=== PATIENT | female | born 1970 | race Caucasian/White ===

== ENCOUNTER 2024-08-16 10:15 | Emergency (ER) | payer OTHER, SELFPAY ==
[2024-08-16 10:26] VITALS: BP 115/89
[2024-08-16 10:30] VITALS: BMI 21.8
--- NOTE | 2024-08-16 12:36 | ED.GENMED ---
History of Present Illness
General
Chief Complaint: Extremity Pain (non-traumatic)
Source: patient
Time Seen by Provider: 08/16/24 11:04
History of Present Illness
History of Present Illness:
53-year-old female with no significant past medical history presenting the emergency department with atraumatic left posterior knee and calf pain that is been gradually worsening over the last few weeks, the last few days has gotten difficulty
ambulating and trouble sleeping due to the pain. Has been taking some Motrin ibuprofen with some initial relief but states now not helping. Denies any trauma, no focal weakness. No history of similar.
Past History
Past History
ED Past Medical History: None
ED Past Surgical History: None
Social History
Tobacco: Non-smoker
Alcohol: None
Drug: None
Personal:
Living: with family
Employment: Employed
Review of Systems
Review of Systems
All Other Systems: ROS reviewed and negative except as documented in HPI and ROS
Phy Exam
Physical Exam
Physical Exam:
GENERAL: Alert , in no apparent distress
EYE: conjunctiva clear
Head: Normocephalic atraumatic
NECK: Supple,
ENT: mmm.
LUNGS: no acute respiratory distress
NEUROLOGICAL: Alert and oriented
SKIN: Warm and dry, skin intact.
MUSCULOSKELETAL: Left lower extremity: No obvious deformity, erythema, edema, ecchymosis, abrasions or lacerations. Patient allows for full range of motion of the extremity but does have discomfort at the knee when doing so. There is an easily
palpable pedal and tibial pulse. Cap refill less than 2 seconds and sensation is grossly intact to light touch.
PSYCH: Normal and appropriate interaction.
Scores
Heart Failure Risk
Heart Failure Risk Score: Not Applicable
Heart Score for Chest Pain Patients
STEMI patient?: Not applicable
Withdrawal Assessment of Alcohol
Withdrawal Assessment Completed?: Not applicable
Course
Orders/Labs/Results
Orders:
Orders
08/16/24 10:25
Periph Venous Lwr Ext Left US [US Periph Venous LOWER Ext LT] Urgent
Comment:
Reason For Exam: calf pain
08/16/24 12:37
Knee Immobilizer Left-Treatmen ONCE
Vital Signs
Initial and Last Documented VS:
Initial Vital Signs
Temp Pulse Resp BP Pulse Ox
97.8 F 78 16 115/89 98
08/16/24 10:26 08/16/24 10:26 08/16/24 10:26 08/16/24 10:26 08/16/24 10:26
Last Documented Vital Signs
Temp Pulse Resp BP Pulse Ox
97.8 F 78 16 115/89 98
08/16/24 10:26 08/16/24 10:26 08/16/24 10:26 08/16/24 10:26 08/16/24 10:26
MDM/Problems Addressed
Differential Diagnosis Includes:
Calf muscle strain, DVT, no concern for fracture given no traumatic injury, popliteal cyst
MDM/Problems Addressed:
53-year-old female presenting to the emergency department for evaluation of atraumatic left posterior knee/proximal gastrocnemius pain over the last 2 weeks, gradually worsening, initially improved with NSAIDs but now not responding. Pain increases
with ambulation. No fevers or infectious symptoms. Ultrasound ordered from triage. Disposition pending
*Radiology
Radiology exam reviewed: radiology read reviewed (3.2 cm Villavicencio's cyst, no DVT)
*Pulse Oximetry
Patient hypoxic: no
*Critical Care Note
Total Time (30-74mins, 75-104mins- exclusive of procedures): Not Applicable
Patient Management
Escalation/DeEscalation of care consider admission/obs:
Ultrasound shows Villavicencio's cyst. Advised patient on outpatient management. Patient requesting something to immobilize her knee. Will place in a knee immobilizer that can be used as needed for pain control. Patient has crutches at home. Short-term
prescription for Percocet sent at patient's request. No prescription abnormalities on PDMP.
ED Attending Note
-
Portions of this chart may have been created with voice recognition software.� Occasional wrong word or��sound alike� substitutions may have occurred due to the inherent limitations of voice recognition software.
Discharge Plan
Departure
Patient Disposition: Home (Routine Discharge)
Date of Disposition: 08/16/24
Time of Disposition: 12:36
Patient with high blood pressure during this ER visit?: No
Discharge Problem:
Synovial cyst of popliteal space [Villavicencio], left knee
Instructions: Villavicencio's Cyst (DC)
Prescriptions:
New
oxycodone-acetaminophen [Percocet] 5-325 mg tablet
1 tab PO Q6HPRN PRN (Reason: pain) Qty: 4 0RF
Referrals:
NONE,* [Family Provider] -
Ethan Dorman MD [Active] - (Ortho)
Interventions
Interventions:
*Risk Screen - Suicide Last Done: 08/16/24 10:30
*General Assessment Last Done: 08/16/24 10:30
*Neglect/Abuse Screening Last Done: 08/16/24 10:54
*ED COVID-19 Vaccine History Last Done: 08/16/24 10:32
ED-Skin Assessment Last Done: 08/16/24 10:54
ED-Peripheral Vascular Assessment Last Done: 08/16/24 10:54
ED-Musculoskeletal Assessment Last Done: 08/16/24 10:54
Discharge Date and Time
Print Language: ESTONIAN
[2024-08-16 13:12] VITALS: BP 125/76
== END 2024-08-16 13:23 | disposition home or self-care (01) ==
LOC: EMR 10:15
PROVIDERS: EMERGENCY PHYSICIAN Student in an Organized Health Care Education/Training Program
DX: M71.22 Synovial cyst of popliteal space [Baker], left knee (principal)
CPT/HCPCS: 99284; 93971